=== PATIENT | female | born 1960 ===

== ENCOUNTER 2020-12-10 05:38 | Day surgery (SDC) | payer OTHER ==
[~2020-12-10 05:38] MED LIST: MULTIPLE VITAM1 EAC2 PO
== END 2020-12-10 16:45 | disposition home or self-care (01) ==
LOC: CIR.AMB 05:38
PROVIDERS: ATTEND Obstetrics & Gynecology
DX: N95.0 Postmenopausal bleeding (principal); Z20.822 Contact with and (suspected) exposure to COVID-19